=== PATIENT | male | born 1950 | race Hispanic/Latino ===

== ENCOUNTER → 2021-11-28 | Outpatient (RCR) | payer MEDICARE | LOC: WCC 08:31 | PROVIDERS: ATTEND Internal Medicine Infectious Disease | DX: E11.621 Type 2 diabetes mellitus with foot ulcer (principal); E11.65 Type 2 diabetes mellitus with hyperglycemia; L97.526 Non-pressure chronic ulcer of other part of left foot with bone involvement without evidence of necrosis; I10 Essential (primary) hypertension | CPT/HCPCS: 36415; 82948 ==

== ENCOUNTER → 2021-11-28 | Outpatient (CLI) | payer MEDICARE | LOC: MRI 11:53 | PROVIDERS: ATTEND Podiatrist Foot & Ankle Surgery | DX: E11.42 Type 2 diabetes mellitus with diabetic polyneuropathy (principal); M86.9 Osteomyelitis, unspecified; L03.032 Cellulitis of left toe ==

== ENCOUNTER → 2021-11-29 | Outpatient (CLI) | payer MEDICARE | LOC: RAD 08:54 | PROVIDERS: ATTEND Podiatrist Foot & Ankle Surgery | DX: E11.621 Type 2 diabetes mellitus with foot ulcer (principal); L97.526 Non-pressure chronic ulcer of other part of left foot with bone involvement without evidence of necrosis | CPT/HCPCS: 71046; 93005 ==

== ENCOUNTER → 2021-12-12 | Outpatient (CLI) | payer MEDICARE ==
[2021-12-09 12:14] LABS: HEMOGLOBIN 11.1 g/dL (14.0-18.0)
[2021-12-09 12:28] LABS: INR 0.95; PARTIAL THROMBOPLASTIN TIME 28.2 seconds (23.8-35.5); PROTHROMBIN TIME 13.4 seconds (11.9-14.5)
[2021-12-09 12:32] LABS: CREATININE, SERUM 1.93 mg/dL (0.72-1.25)
== END ==
LOC: DX 10:52
PROVIDERS: ATTEND Internal Medicine Infectious Disease
DX: M86.9 Osteomyelitis, unspecified (principal)
CPT/HCPCS: 36415; 36569; 71045; 82565; 84520; 85014; 85049; 85610; 85730

== ENCOUNTER → 2021-12-26 | Outpatient (RCR) | payer MEDICARE ==
[~2021-12-26] MED LIST: COLLAGENASE OINTMENT 30 GM TUBE ONE; LIDOCAINE VISC 2% SOLN 15 ML UDC ONE
== END ==
LOC: WCC 11-29 12:07
PROVIDERS: ATTEND Podiatrist Foot & Ankle Surgery
DX: E11.621 Type 2 diabetes mellitus with foot ulcer (principal); E11.65 Type 2 diabetes mellitus with hyperglycemia; L97.526 Non-pressure chronic ulcer of other part of left foot with bone involvement without evidence of necrosis; M86.172 Other acute osteomyelitis, left ankle and foot; E78.49 Other hyperlipidemia; G90.09 Other idiopathic peripheral autonomic neuropathy; I10 Essential (primary) hypertension; I87.2 Venous insufficiency (chronic) (peripheral); Z01.810 Encounter for preprocedural cardiovascular examination; Z01.811 Encounter for preprocedural respiratory examination
CPT/HCPCS: 11042 ×2; 36415 ×14; 82948 ×14; 93922; 97602 ×8; 99211; 99213 ×15; G0277 ×14

== ENCOUNTER 2022-03-21 12:18 | Outpatient (RCR) | payer MEDICARE ==
[~2022-03-21 12:18] MED LIST changes: -COLLAGENASE OINTMENT 30 GM TUBE ONE
[2022-03-21] MEDS ORDERED: LIDOCAINE VISC 2% SOLN 15 ML UDC ONE (16:32)
== END 2022-03-28 ==
LOC: WCC 12:18
PROVIDERS: ATTEND Podiatrist Foot & Ankle Surgery
DX: E11.621 Type 2 diabetes mellitus with foot ulcer (principal); E11.65 Type 2 diabetes mellitus with hyperglycemia; L97.528 Non-pressure chronic ulcer of other part of left foot with other specified severity; I87.2 Venous insufficiency (chronic) (peripheral); N18.31 Chronic kidney disease, stage 3a; I10 Essential (primary) hypertension; E78.49 Other hyperlipidemia; G90.09 Other idiopathic peripheral autonomic neuropathy; Z01.810 Encounter for preprocedural cardiovascular examination; Z01.811 Encounter for preprocedural respiratory examination
CPT/HCPCS: 87071; 87075; 87186; 87205

== ENCOUNTER 2022-04-25 10:49 | Outpatient (RCR) | payer MEDICARE ==
[2022-04-25] MEDS ORDERED: MINERAL OIL/PETROLAT/GLYCERI 6OZ BTL ONE (12:53)
== END 2022-04-27 ==
LOC: WCC 10:49
PROVIDERS: ATTEND Podiatrist Foot & Ankle Surgery
DX: E11.621 Type 2 diabetes mellitus with foot ulcer (principal); E11.65 Type 2 diabetes mellitus with hyperglycemia; L97.528 Non-pressure chronic ulcer of other part of left foot with other specified severity; I87.2 Venous insufficiency (chronic) (peripheral); N18.31 Chronic kidney disease, stage 3a; I10 Essential (primary) hypertension; E78.49 Other hyperlipidemia; B96.89 Other specified bacterial agents as the cause of diseases classified elsewhere; G90.09 Other idiopathic peripheral autonomic neuropathy; Z01.810 Encounter for preprocedural cardiovascular examination; Z01.811 Encounter for preprocedural respiratory examination

== ENCOUNTER 2022-05-16 11:16 | Outpatient (RCR) | payer MEDICARE ==
[2022-05-16] MEDS ORDERED: MINERAL OIL/PETROLAT/GLYCERI 6OZ BTL ONE (16:41)
== END 2022-05-28 ==
LOC: WCC 11:16
PROVIDERS: ATTEND Podiatrist Foot & Ankle Surgery
DX: E11.621 Type 2 diabetes mellitus with foot ulcer (principal); E11.65 Type 2 diabetes mellitus with hyperglycemia; L97.528 Non-pressure chronic ulcer of other part of left foot with other specified severity; I87.2 Venous insufficiency (chronic) (peripheral); N18.31 Chronic kidney disease, stage 3a; I10 Essential (primary) hypertension; E78.49 Other hyperlipidemia; G90.09 Other idiopathic peripheral autonomic neuropathy; Z01.810 Encounter for preprocedural cardiovascular examination; Z01.811 Encounter for preprocedural respiratory examination

== ENCOUNTER 2022-06-13 07:30 | Outpatient (RCR) | payer MEDICARE ==
[2022-06-13] MEDS ORDERED: MINERAL OIL/PETROLAT/GLYCERI 2OZ CRM ONE (13:25)
== END 2022-06-28 ==
LOC: WCC 07:30
PROVIDERS: ATTEND Podiatrist Foot & Ankle Surgery
DX: E11.621 Type 2 diabetes mellitus with foot ulcer (principal); E11.65 Type 2 diabetes mellitus with hyperglycemia; L97.528 Non-pressure chronic ulcer of other part of left foot with other specified severity; I87.2 Venous insufficiency (chronic) (peripheral); N18.31 Chronic kidney disease, stage 3a; I10 Essential (primary) hypertension; E78.49 Other hyperlipidemia; G90.09 Other idiopathic peripheral autonomic neuropathy; Z01.810 Encounter for preprocedural cardiovascular examination; Z01.811 Encounter for preprocedural respiratory examination